=== PATIENT | female | born 1970 | race Two or more races ===

== ENCOUNTER 2019-11-07 08:43 | Outpatient (CLI) | payer OTHER | END 2019-11-07 09:39 | disposition home or self-care (01) | LOC: NUCLEAR 08:43 | PROVIDERS: ATTEND Internal Medicine Cardiovascular Disease | DX: I47.1 Supraventricular tachycardia (principal) ==

== ENCOUNTER 2021-04-08 12:57 | Outpatient (CLI) | payer OTHER | END 2021-04-08 13:06 | disposition home or self-care (01) | LOC: LAB 12:57 | PROVIDERS: ATTEND Radiology Diagnostic Radiology | DX: D37.4 Neoplasm of uncertain behavior of colon (principal) ==

== ENCOUNTER 2021-04-12 09:22 | Outpatient (CLI) | payer OTHER | END 2021-04-12 09:37 | disposition home or self-care (01) | LOC: TOM 09:22 | DX: D37.4 Neoplasm of uncertain behavior of colon (principal); K44.9 Diaphragmatic hernia without obstruction or gangrene; K76.0 Fatty (change of) liver, not elsewhere classified; D25.0 Submucous leiomyoma of uterus ==

== ENCOUNTER 2021-04-20 09:17 | Outpatient (CLI) | payer OTHER | END 2021-04-20 09:18 | disposition home or self-care (01) | LOC: MAMO-SONO 09:17 | DX: N64.4 Mastodynia (principal) ==